=== PATIENT | female | born 2000 | race Caucasian/White ===

== ENCOUNTER 2020-05-02 21:12 | Emergency (ER) | payer OTHER, SELFPAY ==
--- NOTE | ~2020-05-02 | XR_ITS ---
EXAMINATION: XR ankle RT 2V INDICATION: Right ankle pain TECHNIQUE: Two views of the right ankle are obtained COMPARISON: 12/23/2014 FINDINGS: There is anterolateral soft tissue swelling of ankle. Bone alignment is normal. There is no fracture. IMPRESSION: 1. Soft tissue swelling without acute osseous abnormality. Reviewed, dictated and finalized at location A.
[2020-05-02 21:36] VITALS: BP 118/70; PULSE 78; RESP 20; TEMP 37.6; O2SAT 100
[2020-05-02] MEDS: ACETAMINOPHEN 500 MG TABLET 1000 MG PO (21:59)
--- NOTE | 2020-05-02 22:21 | ED.LOWEXIN ---
HPI - Extremity Injury (Lower) General Chief Complaint: Extremity Injury, Lower Stated Complaint: foot pain Source: patient Mode of arrival: ambulatory Limitations: no limitations History of Present Illness HPI Narrative: this is 20-year-old female presents with some right ankle pain with swelling after she misstepped and cause inversion of her right ankle with swelling in the lateral malleolus with some decreased range of motion secondary to pain and inflammation. complaint: ankle injury Injury: Right: ankle ( Swollen with tenderness) Type of Injury: inversion Place: work Severity: moderate Severity scale (1-10): 6 Relieving factors: immobilization Exacerbating factors: movement Context: fall Associated symptoms: swelling Related Data Home Medications Medication Instructions Recorded Confirmed No Home Medications 07/25/19 05/02/20 Allergies Allergy/AdvReac Type Severity Reaction Status Date / Time Sulfa (Sulfonamide Allergy Unknown Unknown Verified 05/02/20 21:42 Antibiotics) Review of Systems Review of Systems: All systems reviewed & are unremarkable except as noted in HPI and below PMFSH Past Medical History Medical History Syncope and collapse Family History Family History Grandparent Hypertension Family history of chronic obstructive pulmonary disease Social History Social History Smoking status: Never smoker Gender identity (if verbalized by the patient): Female Exam Const: General: no acute distress HENMT: Head: normal to inspection Eyes: Conjunctivae: conjunctivae normal Pupils: Equal, round and reactive pupils present EOM: EOMs intact bilaterally Neck: Neck: normal visual inspection, no lymphadenopathy and no meningeal signs Chest: Chest palpation & inspection: normal inspection of the chest Resp: Effort & Inspection: normal respiratory effort Auscultation: clear to auscultation bilaterally Cardio: Rate: regular rate Rhythm: regular rhythm : General: Yes no CVA tenderness Skin: General skin exam: normal color Rashes: no rashes Extrem: Other: Swelling the right lateral malleolus with point tenderness with a strong brisk pedal pulse on the right Course Course Emergency Course: patient received p.o. Tylenol and had remainder of pain down to a about 4/ 10, placed in Geo wraps informed patient and her mother x-ray show no acute fractures. Vital Signs Vital signs: Vital Signs Temperature 37.6 C 05/02/20 21:36 Pulse Rate 78 05/02/20 21:36 Respiratory Rate 05/02/20 21:36 Blood Pressure 118/70 05/02/20 21:36 Pulse Oximetry 100 05/02/20 21:36 Temperature 37.6 C 05/02/20 21:36 Pulse Rate 78 05/02/20 21:36 Respiratory Rate 05/02/20 21:36 Blood Pressure 118/70 05/02/20 21:36 Pulse Oximetry 100 05/02/20 21:36 Critical Care Time Critical Care Time Critical Care Time: No Discharge Plan Discharge Clinical Impression: Ankle sprain and strain Patient Disposition: Home, Self-Care Condition: Stable Instructions: Antibiotic Form, Ankle Sprain (ED) Additional Instructions: Tylenol or Motrin as needed for pain and swelling, follow-up with primary care physician if symptoms persist or worsen. Prescriptions: No Action No Home Medications RF: 0 Follow-up/Referrals: Tadeo Glass MD [Primary Care Provider] - Time of Disposition: 22:25
[2020-05-02 22:39] VITALS: BP 122/73
== END 2020-05-02 22:41 | disposition home or self-care (01) ==
PROVIDERS: Emergency Provider Emergency Medicine; PCP Family Medicine
DX: S93.401A Sprain of unspecified ligament of right ankle, initial encounter (principal); X58.XXXA Exposure to other specified factors, initial encounter
CPT/HCPCS: 73600; 99282; 99283

== ENCOUNTER 2020-05-14 16:09 | Outpatient (RCR) | payer OTHER, SELFPAY ==
--- NOTE | 2020-05-14 17:13 | PTOPEVAL ---
Thank you for referring Melinda Villa to [facility].? The patient is scheduled to be seen for therapy? ____x/week for ___ weeks. Please review, sign, date and return this plan of care JANIS. I agree with and certify that the following plan of care is medically necessary. Referring Physician Date Admitting Provider: Attending Provider: Tadeo Glass MD Referring Provider: *PT Outpatient Evaluation Start: 05/14/20 16:07 Freq: Status: Active Protocol: Document 05/14/20 16:15 [facility] [email or web address]] (Rec: 05/14/20 16:53 [facility] [email or web address]] [email or web address]) Therapy Assessment Status Assessment Status Assessment Status Evaluation Evaluation Information Problem Diagnosis R ankle sprain Onset 05/02/20 Subjective Information patient reports she injured Query Text:As Reported By Patient/ her R ankle when she fell down Family some steps at work. she reports she was carrying a bucket of ice. she reports she has had x-rays of the R ankle . no broken bones. she reports she has not had an MRI of the R ankle. she reports she is off work currently. she reports she is planning to go back to work in a few weeks. she reports she has increased pain in the R ankle with walking and standing. 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 she reports she also does carry out. she reports she has to about 5 gallons of ice at the heaviest at work. Prior Level of Function Comments Additional Prior Level of Function prior to injury, no issues. Comments she reports a history of 2 ankle sprains in the past growing up. Pain Assessment Timing of Pain Assessment Timing of Pain Assessment Assessment Pain Scale Pain Scale Used Numeric (1 - 10) Self Report Pain Assessment Right Ankle(s) Reported Pain Level 2 Pain Frequency Acute,Continuous Lowest Pain Intensity 1 Greatest Pain Intensity 6 Pain Score Pain Score 2: Self Report Lower Extremity Range of Motion Ankle/Foot Range of Motion Right Ankle Dorsiflextion With Knee Extension -5 Range of Motion - Active Ankle Plantarflexion Range of Motion - 45 Active Query Text:
== END 2020-06-12 15:35 | disposition home or self-care (01) ==
LOC: CHSPT 16:09
PROVIDERS: PCP Family Medicine; Visit Provider Family Medicine
DX: M25.571 Pain in right ankle and joints of right foot (principal); S93.401A Sprain of unspecified ligament of right ankle, initial encounter
CPT/HCPCS: 97016; 97110; 97112; 97161; 97530

== ENCOUNTER 2020-10-25 08:19 | Emergency (ER) | payer BC, SELFPAY ==
[2020-10-25 08:25] VITALS: BP 110/71; PULSE 81; RESP 18; TEMP 37.1; O2SAT 99
--- NOTE | 2020-10-25 08:56 | ED.ALLEREA ---
HPI - Allergic Reaction General Chief complaint: Skin/Abscess/Foreign Body Stated complaint: HIVES Source: patient, family and RN notes reviewed Mode of arrival: ambulatory Limitations: no limitations History of Present Illness complaint: allergic reaction, hives and facial swelling Onset (ago): hour(s) (16) Exposure: unknown Symptoms: rash, itching and lip swelling Severity: moderate Treatment prior to arrival: none Previous Allergic Reaction History: other (Yes to rabbit dander) Related Data Home Medications Medication Instructions Recorded Confirmed escitalopram oxalate 10 mg PO DAILY 10/25/20 10/25/20 Allergies Allergy/AdvReac Type Severity Reaction Status Date / Time Sulfa (Sulfonamide Allergy Unknown Unknown Verified 07/09/20 17:07 Antibiotics) Review of Systems Review of Systems: All systems reviewed & are unremarkable except as noted in HPI and below PMFSH Past Medical History Medical History (Updated 10/25/20 @ 09:02 by Frankie Jones MD) Depression Syncope and collapse Surgical History Surgical History (Updated 10/25/20 @ 08:59 by Frankie Jones MD) No pertinent past surgical history Family History Family History Grandparent Hypertension Family history of chronic obstructive pulmonary disease Social History Social History Smoking status: Never smoker Gender identity (if verbalized by the patient): Female Exam Const: General: healthy appearing and no acute distress Nutritional Appearance: well nourished Orientation/consciousness: patient oriented x3 Other: female nurse in room during examination. HENMT: Head: normal to inspection Ears: external ears normal Eyes: Conjunctivae: conjunctivae normal Pupils: Equal, round and reactive pupils present Neck: Neck: normal visual inspection Resp: Effort & Inspection: normal respiratory effort Auscultation: clear to auscultation bilaterally Cardio: Rate: regular rate Rhythm: regular rhythm GI: GI Palp: Yes Soft to palpation and No Tenderness to palpation present (GI) Auscultation: normal bowel sounds Back/Spine/Pelvis: Cervical Spine: cervical ROM normal Thoracic/Lumbar Spine: thoraco-lumbar ROM normal Skin: Rashes: rashes noted urticaria right multiple locations Neuro: General: patient oriented x3, moves all extremities, no meningeal signs and no focal motor deficits Speech: normal speech Gait exam (Neuro): Normal gait present Extrem: General: normal to inspection and no clubbing, cyanosis or edema Psych: Appearance: grossly normal and well kempt Affect: normal affect Attitude: cooperative Thought content: Yes Normal thought content present Course Vital Signs Vital signs: Vital Signs Temperature 37.1 C 10/25/20 08:25 Pulse Rate 81 10/25/20 08:25 Respiratory Rate 18 10/25/20 08:25 Blood Pressure 110/71 10/25/20 08:25 Pulse Oximetry 99 10/25/20 08:25 Temperature 37.1 C 10/25/20 08:25 Pulse Rate 81 10/25/20 08:25 Respiratory Rate 18 10/25/20 08:25 Blood Pressure 110/71 10/25/20 08:25 Pulse Oximetry 99 10/25/20 08:25 Discharge Plan Discharge Clinical Impression: Allergy Qualifiers: Encounter type: initial encounter Qualified Code(s): T78.40XA - Allergy, unspecified, initial encounter Patient Disposition: Home, Self-Care Condition: Stable Instructions: Allergies (ED) Additional Instructions: use or Zyrtec or Karen or Claritin [id number]. Take twice daily while having allergy symptoms. Prescriptions: No Action escitalopram oxalate 10 mg tablet 10 mg PO DAILY RF: 0 Follow-up/Referrals: Tadeo Glass MD [Primary Care Provider] - Time of Disposition: 09:02
== END 2020-10-25 09:05 | disposition home or self-care (01) ==
PROVIDERS: Emergency Provider Emergency Medicine; PCP Family Medicine
DX: T78.40XA Allergy, unspecified, initial encounter (principal); F32.9 Major depressive disorder, single episode, unspecified
CPT/HCPCS: 99281; 99282

== ENCOUNTER 2022-08-08 14:32 | Emergency (ER) | payer BC, SELFPAY ==
[2022-08-08 16:31] VITALS: BP 117/79; PULSE 112; RESP 16; TEMP 38.2; O2SAT 100
--- NOTE | 2022-08-08 16:47 | ED.URI ---
HPI - URI/Sore Throat General Chief Complaint: Upper Respiratory Infection Stated Complaint: sore throat,tonsils swollen Time Seen by Provider: 08/08/22 16:47 History of Present Illness HPI Narrative: 22-year-old female presents for complaint of sore throat, swollen tonsils, and fever since yesterday. She endorses sick contacts. She denies shortness of breath, wheezing, nausea, vomiting, diarrhea. She has not taking anything for symptoms. Related Data Home Medications Medication Instructions Recorded Confirmed escitalopram oxalate 10 mg tablet 10 mg PO DAILY 10/25/20 10/25/20 Allergies Allergy/AdvReac Type Severity Reaction Status Date / Time Sulfa (Sulfonamide Allergy Unknown Unknown Verified 07/09/20 17:07 Antibiotics) Review of Systems Review of Systems: CONSTITUTIONAL: Denies body aches EYES: Denies visual changes, redness, or discharge. ENT: Denies rhinorrhea, congestion CARDIOVASCULAR: Denies chest pain, palpitations, or edema. RESPIRATORY: Denies dyspnea. GASTROINTESTINAL: Denies abdominal pain, nausea, vomiting, or diarrhea. SKIN: Denies rash, itching, or wounds. MUSCULOSKELETAL: Denies back pain, joint pain, or myalgia. NEUROLOGIC: Denies headache PMFSH Past Medical History Medical History Depression Syncope and collapse Surgical History Surgical History No pertinent past surgical history Family History Family History Grandparent Hypertension Family history of chronic obstructive pulmonary disease Social History Social History Smoking status: Never smoker Gender identity (if verbalized by the patient): Female Exam Narrative: GENERAL: Ill-appearing, no acute distress. EYES: conjunctivae clear ENT: Mucous membranes moist. TMs pearly slaughter with normal light reflex bilaterally; no tragal tenderness. Oropharynx erythematous Tonsils enlarged 2+ with exudate. No drooling, no hoarseness, no trismus, uvula midline. No tripod positioning, hot potato voice, or soft palate swelling. CHEST: Clear to auscultation, breath sounds equal. HEART: Regular rate and rhythm. No murmur heard. SKIN: Warm, dry, no rash. NEURO: Alert and oriented x3. Course Course Emergency Course: Patient is aware of diagnosis, understands and agrees to treatment plan. Anticipatory guidance given. Patient agrees to follow-up as directed and is aware of reasons to seek care at the emergency department. Portions of this record may have been created with voice recognition software Level of Care: Express Care Visit Vital Signs Vital signs: Vital Signs Temperature 100.8 F H 08/08/22 16:31 Pulse Rate 112 H 08/08/22 16:31 Respiratory Rate 16 08/08/22 16:31 Blood Pressure 117/79 08/08/22 16:31 Pulse Oximetry 100 08/08/22 16:31 Temperature 100.8 F H 08/08/22 16:31 Pulse Rate 112 H 08/08/22 16:31 Respiratory Rate 16 08/08/22 16:31 Blood Pressure 117/79 08/08/22 16:31 Pulse Oximetry 100 08/08/22 16:31 MDM - URI/Sore Throat MDM Narrative Medical decision making narrative: strep result reviewed with pt.Advise supportive treatments. Patient is appropriate for outpatient treatment and follow-up. Differential Diagnosis Differential diagnosis: Likely upper respiratory infection, viral infection and pharyngitis Lab Data Labs: Strep Screen Positive Group A Strep *(Reference Range: Negative)* Discharge Plan Discharge Clinical Impression: Strep pharyngitis Patient Disposition: Home, Self-Care Condition: Stable Instructions: Antibiotic Form, Strep Throat (ED) Additional Instructions: - Take the antibiotic as directed. Fever and sore throat typically resolve within one to three d
== END 2022-08-08 16:54 | disposition home or self-care (01) ==
PROVIDERS: Emergency Provider Nurse Practitioner Family; PCP Family Medicine
DX: J02.0 Streptococcal pharyngitis (principal); F32.A Depression, unspecified
CPT/HCPCS: 87880; 99213; G0463

== ENCOUNTER 2022-09-02 16:03 | Outpatient (CLI) | payer BC, SELFPAY ==
--- NOTE | ~2022-09-02 | XR_ITS ---
EXAM: XR lumbar spine 2-3V DATE: 09/02/2022 16:31 HISTORY: RT SIDED LOW BACK PAIN RADIATES DOWN RT LEG X FEW MONTHS . COMPARISON: None available. FINDINGS: 5 nonrib-bearing lumbar-type vertebral bodies. Pedicles intact. Normal vertebral body alig nment. Vertebral body heights preserved. Disc spaces maintained. Normal facets and posterior elements . No fracture or dislocation. IMPRESSION: Normal lumbar spine radiograph findings. Reviewed, dictated and finalized at location K. 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
[2022-09-02 16:23] LABS: Basophils Absolute Auto 0.05 K/mm3 (0.00-0.10); Basophils Percent Auto 0.6 % (0.0-1.0); Eosinophils Absolute Auto 0.18 K/mm3 (0.02-0.50); Hematocrit 39.6 % (35.0-49.0); Hemoglobin 13.3 g/dL (12.0-15.0); Immature Granulocyte Absolute 0.03 K/mm3 (0.00-0.00); Immature Granulocyte Percent A 0.3 % (0.0-0.0); Lymphocytes Absolute Auto 3.18 K/mm3 (1.10-4.50); Lymphocytes Percent Auto 35.7 % (18.0-42.0); Mean Corpuscular HGB Conc 33.6 g/dL (32.0-36.0); Mean Corpuscular Volume 89.2 fL (78.0-102.0); Mean Platelet Volume 9.7 fl (9.2-11.8); Monocytes Absolute Auto 0.55 K/mm3 (0.10-0.90); Monocytes Percent Auto 6.2 % (2.0-11.0); Neutrophils Absolute Auto 4.9 K/mm3 (1.7-7.2); Neutrophils Percent Auto 55.2 % (50.0-70.0); Platelet Count Result 209 K/mm3 (150-420); Red Blood Count 4.44 M/mm3 (4.20-5.40); Red Cell Distribution Width 12.6 % (11.6-14.4); White Blood Count 8.9 K/mm3 (4.8-10.8)
[2022-09-02 17:20] LABS: Thyroid Stimulating Hormone 2.32 uIU/mL (0.36-3.74); Vitamin B12 484 pg/mL (193-986)
[2022-09-02 17:30] LABS: Erythrocyte Sedimentation Rate 4 mm/hr (0-15)
[2022-09-04 17:10] LABS: RPR Screen Non-Reactive (Non-Reactive)
== END 2022-09-02 16:04 | disposition home or self-care (01) ==
LOC: CHSLAB 16:06
PROVIDERS: PCP Family Medicine; Visit Provider Family Medicine
DX: M54.50 Low back pain, unspecified (principal); R20.2 Paresthesia of skin
CPT/HCPCS: 36415; 72100; 82607; 84443; 85025; 85652; 86592

== ENCOUNTER 2022-09-11 14:54 | Outpatient (RCR) | payer BC, SELFPAY ==
--- NOTE | 2022-09-11 16:04 | PTOPEVAL1 ---
Assessment and note entered by Katya Acosta DPT Evaluation Information Assessment Status Evaluation Diagnosis low back pain with radiating pain to R LE Onset 09/07/22 Subjective Information Patient reports low back pain that radiates to R LE. She reports no injury but pain gradually increased since the middle of July. Patient has diffiuclty with standing for prolonged periods of time and her back pain increases when she sits . She is on a steriod dose pack but she has not noticed an increase in pain. She works at [employer] and is on her feet all day. She denies anything to improve her pain. Reported Pain Level Pain Score 4: Self Report Assessment PT Clinical Summary Patient is a 22 year old female who presents to PT with low back pain with radiating symptoms to the R LE. Patient demonstrates decreased hip and core strength, decreased B hamstring flexibility and restriction of the R piriformis impairing her ability to stand for work duties. She would benefit from skilled PT to address impairments and return to PLOF. Plan of Care Interventions Electrical Stimulation,Gait Training,Hot Pack/Cold Pack,Manual Therapy,Mechanical Traction,Neuro Re- education,Patient/Caregiver Educati,Therapeutic Activities,Therapeutic Exercise,Self-Care/Home Management PT Services Indicated Yes Treatment Frequency and 2x weekly for 10 visits Duration These treatments will address the objective and functional deficits as defined above. The patient will be advanced safely and appropriately in order for the patient to progress towards his/her prior level of function. Additional exercises will be introduced and as well as a comprehensive home exercise program upon discharge, if needed, ?to ensure carryover of functional gains achieved in the clinic. This treatment plan has been reviewed and agreement upon by the patient.
--- NOTE | 2022-10-19 07:39 | PTOPDC ---
Assessment and note entered by Katya Acosta, DPT Evaluation Information Assessment Status Discharge - Pt Not Presen Diagnosis low back pain with radiating pain to R LE Onset 09/07/22 Subjective Information Patient reports low back pain that radiates to R LE. She reports no injury but pain gradually increased since the middle of July. Patient has diffiuclty with standing for prolonged periods of time and her back pain increases when she sits . She is on a steriod dose pack but she has not noticed an increase in pain. She works at [employer] and is on her feet all day. She denies anything to improve her pain. Assessment PT Clinical Summary Patient is a 22 year old female who was seen for 8 visits from 09/11/22-10/09/22. Patient made great improvements in pain levels and has reports that she feels great . Patient was indiependent with HEP and wishes to be discharged at this time due to positive progress. Plan of Care PT Services Indicated No
--- NOTE | 2022-10-19 07:42 | PTOPEVAL1 ---
Assessment and note entered by Katya Acosta DPT Evaluation Information Assessment Status Discharge - Pt Not Presen Diagnosis low back pain with radiating pain to R LE Onset 09/07/22 Subjective Information Patient cancelled last visit with request for DC due to feeling better. Assessment PT Clinical Summary Patient is a 22 year old female who was seen for 8 visits from 09/11/22-10/09/22. Patient made great improvements in pain levels and has reports that she feels great . Patient was independent with HEP and wishes to be discharged at this time due to positive progress. Plan of Care PT Services Indicated No Treatment Frequency and DC to independent HEP Duration These treatments will address the objective and functional deficits as defined above. The patient will be advanced safely and appropriately in order for the patient to progress towards his/her prior level of function. Additional exercises will be introduced and as well as a comprehensive home exercise program upon discharge, if needed, ?to ensure carryover of functional gains achieved in the clinic. This treatment plan has been reviewed and agreement upon by the patient.
== END 2022-10-09 11:23 | disposition home or self-care (01) ==
LOC: CHSPT 14:54
PROVIDERS: PCP Family Medicine; Visit Provider Family Medicine
DX: M54.50 Low back pain, unspecified (principal)
CPT/HCPCS: 97014; 97110; 97161; 97530; G0283

== ENCOUNTER 2023-01-27 16:17 | Outpatient (CLI) | payer BC, SELFPAY ==
[2023-01-27 16:32] LABS: Basophils Absolute Auto 0.04 K/mm3 (0.00-0.10); Basophils Percent Auto 0.3 % (0.0-1.0); Eosinophils Absolute Auto 0.08 K/mm3 (0.02-0.50); Eosinophils Percent Auto 0.6 % (1.0-6.0); Hematocrit 41.2 % (35.0-49.0); Hemoglobin 13.6 g/dL (12.0-15.0); Immature Granulocyte Absolute 0.09 K/mm3 (0.00-0.00); Immature Granulocyte Percent A 0.7 % (0.0-0.0); Lymphocytes Absolute Auto 1.46 K/mm3 (1.10-4.50); Lymphocytes Percent Auto 11.1 % (18.0-42.0); Mean Corpuscular Hemoglobin 29.8 pg (27.0-31.0); Mean Corpuscular Volume 90.2 fL (78.0-102.0); Mean Platelet Volume 9.7 fl (9.2-11.8); Monocytes Absolute Auto 1.16 K/mm3 (0.10-0.90); Monocytes Percent Auto 8.8 % (2.0-11.0); Neutrophils Absolute Auto 10.4 K/mm3 (1.7-7.2); Neutrophils Percent Auto 78.5 % (50.0-70.0); Platelet Count Result 177 K/mm3 (150-420); Red Blood Count 4.57 M/mm3 (4.20-5.40); Red Cell Distribution Width 12.6 % (11.6-14.4); White Blood Count 13.2 K/mm3 (4.8-10.8)
[2023-01-27 16:37] LABS: Monoscreen Negative (Negative); Negative Monotest Control Negative (Negative); Positive Monotest Control Positive (Positive)
== END 2023-01-27 16:18 | disposition home or self-care (01) ==
LOC: CHSLAB 16:19
PROVIDERS: PCP Family Medicine; Visit Provider Family Medicine
DX: J06.9 Acute upper respiratory infection, unspecified (principal)
CPT/HCPCS: 36415; 85025; 86308

== ENCOUNTER 2023-04-26 01:01 | Day surgery (SDC) | payer BC, SELFPAY ==
--- NOTE | 2023-04-20 14:17 | PC.NURSE ---
Report to the Outpatient Waiting Room, entrance under the green pavilion located off [facility], at time 1130 on date 04/26/23. Planned Procedure Time: 1330. Time changes happen often and if your time is changed the preop area will call you the afternoon before. - You and your visitor will be asked to self-screen and do not enter if you have any COVID symptoms. - A mask is optional within the hospital at this time. Patients may have clear liquids (water, carbonated beverages, clear teas, apple juice) until 3 hours prior to surgery with a maximum of 20 ounces. 1030 - No food from midnight until time of surgery - Infants may have breast milk until 4 hours before surgery, formula 6 hours prior to surgery. - Children will be allowed to drink immediately following surgery. If applicable, please bring a bottle or sippy cup to assist with drinking. Juice, water, soda, and popsicles are readily available. For infants on formula, please bring formula the day of surgery. Pacifiers are allowed. Take the following medications with a SIP of water the morning of surgery: None DO NOT STOP ANY OF YOUR OTHER PRESCRIPTION MEDICATIONS PRIOR TO SURGERY ?EXCEPT THE FOLLOWING Medications to discontinue per physician Zyrte Date to take last dose 04/25/23 Please no make-up, nail kyrgyz, hairspray, perfume, deodorant, or body powder the day of surgery. No jewelry (including any body piercings) or valuables the day of surgery, leave them at home. Please take a shower or bath the night before, or the morning of, surgery with an antibacterial soap. Wear comfortable, loose fitting clothing. Children are encouraged to wear pajamas. - Jewelry must be removed prior to entering the operating room. Rings and piercings that are not removed may be cut off. - The hospital will not accept responsibility for valuables. - Please leave all valuables, including medications, at home the day of surgery. If you are going home after surgery, a licensed water taxi driver must drive you home. - NO public transportation without another adult if you receive anesthesia. - We recommend that an adult stay with you for 24 hours following discharge. - We also recommend that you do not drive, make important decision, drink alcoholic beverages, or take any drugs that were not prescribed by your health care provider for at least 24 hours after your discharge time. For Pediatric surgeries, we recommend two adults accompany the child home. Follow any additional instructions given to you from your surgeon. If you or anyone in your household have experienced Covid symptoms in the past week, please notify your surgeon or the nurse liaison at the phone number below for possible testing. Telephone instructions given to Patient- Melinda Villa and asked if any additional questions and then verbalized understanding. Patient advised to call surgeon office or pre surgery nurse liaison [phone] if any additional questions.
[2023-04-20 14:22] VITALS: BMI 21.2
--- NOTE | 2023-04-26 11:17 | WPDHPUPDATE1 ---
History and Physical Update Update Date/Time: 04/26/23 11:17 History and Physical has been reviewed, including an updated exam of the patient. There are NO changes in the patient's condition. Risks, benefits, and alternatives have been discussed and questions answered. Patient agrees to proceed with procedure.
--- NOTE | 2023-04-26 11:17 | PM.HPGS ---
History of Present Illness History of Present Illness Consent: Risks, benefits, and alternatives have been discussed and questions answered. Patient agrees to proceed with procedure. Chief complaint: Partial Intact Hymen Narrative: Melinda Villa is a 23 year old female who presented as a new patient with the inability to place a tampon or have intercourse. Patient has cycles that are regular. She bought vaginal dilators online and has been attempting to place them but is not able. Exam reveals 2 small openings that a Q-tip was able to pass approximately 1cm in depth. Exam was very painful. It was recommended to undergo vaginal dilation in the operating room. Risks the procedure were reviewed and minimal the small chance of bleeding and infection. Patient voices understanding and agrees to proceed. Review of Systems Review of Systems: not repeated day of surgery; patient states no changes in status PMF Past Medical History Medical History (Updated 04/26/23 @ 11:21 by Hedy Pepper MD) Anxiety Depression Surgical History Surgical History (Updated 04/26/23 @ 11:20 by Hedy Pepper MD) History of myringotomy No pertinent past surgical history Family History Family History Grandparent Hypertension Family history of chronic obstructive pulmonary disease Social History Social History Smoking status: Never smoker Tobacco type: e-cigarettes/vaping Drinks per week: 6 Substance use: current Substance use type: marijuana Other substance usage details: rarely Gender identity (if verbalized by the patient): Female Spiritual care concerns: No Meds Home Medications and Allergies Home Medications Medication Instructions Recorded Confirmed Type cetirizine 10 mg tablet (Zyrtec) 10 mg PO DAILY 04/20/23 04/20/23 History Allergies Allergy/AdvReac Type Severity Reaction Status Date / Time Sulfa (Sulfonamide Allergy Unknown Hives Verified 04/20/23 14:06 Antibiotics) Exam Const: General: healthy appearing and alert Orientation/consciousness: patient oriented x3 Resp: Effort & Inspection: normal respiratory effort GI: GI Palp: Yes Soft to palpation, No Tenderness to palpation present (GI) and No Palpable mass present : External Female Exam: other (2 small openings at the hymen ) Neuro: General: patient oriented x3 Assessment and Plan Assessment and plan (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
[2023-04-26] MEDS: ACETAMINOPHEN 500 MG TABLET 1000 MG PO (14:05)
[2023-04-26] MEDS: LACTATED RINGERS 1,000 ML 30 ML IV CONT (14:05)
[2023-04-26 14:35] VITALS: BP 121/75; PULSE 106; RESP 16; TEMP 36.4; O2SAT 99
--- NOTE | 2023-04-26 15:17 | P.PNAN_ITS ---
Anes - Eval Pre Procedure Procedure: Operation Date: 04/26/23 15:00 Proposed Procedures p Vaginal Dilation - Hedy Pepper MD Date/Time: 04/26/23 15:17 Pre Op Diagnosis: Partial Intact Hymen Patient Data Age: 23 Gender: F Height: 1.6 m Weight: 53.3 kg Last Vital Signs Temp 36.4 C L 04/26/23 14:35 Pulse 106 H 04/26/23 14:35 Resp 16 04/26/23 14:35 BP 121/75 04/26/23 14:35 Pulse Ox 99 04/26/23 14:35 O2 Del Method Room Air 04/26/23 14:35 Allergies Allergy/AdvReac Type Severity Reaction Status Date / Time Sulfa (Sulfonamide Allergy Unknown Hives Verified 04/26/23 14:40 Antibiotics) Home Medications Medication Instructions Recorded Confirmed Type cetirizine 10 mg tablet (Zyrtec) 10 mg PO DAILY 04/20/23 04/20/23 History Patient hx anesthesia problems: none Family hx anesthesia problems: none Results Review: All pre-operative results and documents have been reviewed as part of the pre- operative evaluation. [facility] Past Medical History Medical History (Updated 04/26/23 @ 11:21 by Hedy Pepper MD) Anxiety Depression Surgical History Surgical History (Updated 04/26/23 @ 11:20 by Hedy Pepper MD) History of myringotomy No pertinent past surgical history Family History Family History Grandparent Hypertension Family history of chronic obstructive pulmonary disease Social History Social History Smoking status: Never smoker Tobacco type: e-cigarettes/vaping Drinks per week: 6 Substance use: current Substance use type: marijuana Other substance usage details: rarely Gender identity (if verbalized by the patient): Female Spiritual care concerns: No Exam Day of Procedure 04/26/23 15:17 Patient weight: normal Heart: regular rate and rhythm Lungs: clear to auscultation Airway: Mallampati scale class II Neurological: alert and oriented
[2023-04-26] MEDS: KETOROLAC 30 MG/ML VIAL (*BKC) IV PUSH (15:27)
--- NOTE | 2023-04-26 15:38 | W.PM.PROC2 ---
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 Once under anesthesia the anatomy was much easier to evaluate. There is a wide septum in the hymen with a very small opening approximately 1/4cm to the left and approximately 1/2cm to the right. The septum is cut with Dukes scissors in the midline the vaginal canal is noted to be normal and accepts a 15mm dilator easily. A Ragsdale speculum is utilized and the vagina and cervix appear grossly normal vaginal exam reveals the cervix to palpate normal and the uterus palpates normal. As no other abnormalities were noted, the patient was awakened from anesthesia and taken to recovery in stable condition. Sponge, needle, and instrument counts are correct per the OR staff. Estimated Blood Loss 5 Drains No Packing No Pathology None sent Complications No immediate complications Condition Stable Disposition PACU
[2023-04-26 15:39] VITALS: BP 87/53; PULSE 88; RESP 12; O2SAT 98
[2023-04-26 16:01] VITALS: BP 103/65; PULSE 63; RESP 16
[2023-04-26 16:30] VITALS: BP 107/77; PULSE 81; RESP 16
== END 2023-04-26 16:35 | disposition home or self-care (01) ==
PROVIDERS: PCP Family Medicine; Visit Provider Obstetrics & Gynecology Gynecology
PROC: (CPT 56442; principal; 2023-04-26 15:00)
DX: Q52.4 Other congenital malformations of vagina (principal); F41.9 Anxiety disorder, unspecified; F32.A Depression, unspecified; F17.290 Nicotine dependence, other tobacco product, uncomplicated; F12.90 Cannabis use, unspecified, uncomplicated
CPT/HCPCS: 56442; 57400; A9270; J1100; J1885; J2250; J2405; J2704; J3010; J7120

== ENCOUNTER 2023-06-15 15:52 | Outpatient (CLI) | payer BC, SELFPAY ==
[2023-06-15 16:06] LABS: Basophils Absolute Auto 0.03 K/mm3 (0.00-0.10); Basophils Percent Auto 0.5 % (0.0-1.0); Eosinophils Absolute Auto 0.09 K/mm3 (0.02-0.50); Eosinophils Percent Auto 1.5 % (1.0-6.0); Hematocrit 40.3 % (35.0-49.0); Hemoglobin 13.5 g/dL (12.0-15.0); Immature Granulocyte Absolute 0.03 K/mm3 (0.00-0.00); Immature Granulocyte Percent A 0.5 % (0.0-0.0); Lymphocytes Absolute Auto 2.05 K/mm3 (1.10-4.50); Lymphocytes Percent Auto 34.2 % (18.0-42.0); Mean Corpuscular HGB Conc 33.5 g/dL (32.0-36.0); Mean Corpuscular Hemoglobin 29.4 pg (27.0-31.0); Mean Corpuscular Volume 87.8 fL (78.0-102.0); Mean Platelet Volume 9.5 fl (9.2-11.8); Monocytes Percent Auto 6.7 % (2.0-11.0); Neutrophils Absolute Auto 3.4 K/mm3 (1.7-7.2); Neutrophils Percent Auto 56.6 % (50.0-70.0); Platelet Count Result 227 K/mm3 (150-420); Red Blood Count 4.59 M/mm3 (4.20-5.40); Red Cell Distribution Width 11.9 % (11.6-14.4)
[2023-06-15 16:47] LABS: Alanine Aminotransferase 22 U/L (14-59); Albumin Level 3.8 g/dL (3.4-5.0); Alkaline Phosphatase 70 U/L (46-116); Amylase 45 U/L (25-115); Anion Gap 8 mmol/L (8-16); Aspartate Amino Transferase 14 U/L (15-37); Bilirubin,Total 0.2 mg/dL (0.00-1.00); Blood Urea Nitrogen 7 mg/dL (7-18); Calcium 9.5 mg/dL (8.5-10.1); Carbon Dioxide 29 mmol/L (21-32); Chloride 103 mmol/L (98-108); Estimated Glomerular Filt Rate > 60; Free T4 Free Thyroxine 1.01 ng/dL (0.76-1.46); Glucose 106 mg/dL (70-99); Lipase 43 U/L (16-77); Osmolality Calculated 288 mOsm/kg (285-295); Potassium 3.8 mmol/L (3.5-5.1); Sodium 140 mmol/L (136-145); Thyroid Stimulating Hormone 2.46 uIU/mL (0.36-3.74); Total Protein 6.9 g/dL (6.4-8.2)
[2023-06-15 16:48] LABS: CRP < 0.5 mg/dL (0.0-0.9)
[2023-06-19 12:36] LABS: ANCA Screen Negative (Negative); Myeloperoxidase Ab <1.0 AI (<1.0); Proteinase-3 Ab <1.0 AI (<1.0); S cerevisiae Ab (IgA) 5.7 U (<=20.0); S cerevisiae Ab (IgG) 12.5 U (<=20.0)
== END 2023-06-15 15:53 | disposition home or self-care (01) ==
LOC: CHSLAB 15:54
PROVIDERS: PCP Family Medicine; Visit Provider Nurse Practitioner Family
DX: R10.84 Generalized abdominal pain (principal); K59.00 Constipation, unspecified; K58.9 Irritable bowel syndrome, unspecified
CPT/HCPCS: 36415; 80053; 82150; 83690; 84439; 84443; 85025; 86036; 86140; 86671

== ENCOUNTER 2024-07-05 16:44 | Emergency (ER) | payer BC, SELFPAY ==
--- NOTE | 2024-07-05 16:54 | ED.FEMALEGU ---
HPI - Female Genitourinary General Chief complaint: Urogenital-Female Stated complaint: possible UTI Time Seen by Provider: 07/05/24 17:18 Source: patient and RN notes reviewed Mode of arrival: ambulatory Limitations: no limitations History of Present Illness HPI Narrative: 24-year-old female presents with concern of for burning with urination, frequency, suprapubic cramping, low back pain on the right, foul odor. She also reports white vaginal discharge in itching. Reports she used Monistat 1 today. Denies fever, aches, chills, sweats MD elicited complaint: UTI Related Data Allergies Allergy/AdvReac Type Severity Reaction Status Date / Time Sulfa (Sulfonamide Allergy Unknown Hives Verified 07/05/24 17:05 Antibiotics) Review of Systems Review of Systems: CONSTITUTIONAL: Denies malaise, chills, sweats, or fever. CARDIOVASCULAR: Denies chest pain, palpitations, or edema. RESPIRATORY: Denies cough or dyspnea. GASTROINTESTINAL: Denies abdominal pain, nausea, vomiting, diarrhea GENITOURINARY: Reports dysuria, frequency, urgency, suprapubic pressure, vaginal itching and discharge. Denies flank pain or hematuria. SKIN: Denies rash or itching. MUSCULOSKELETAL: Denies back pain or myalgia. All systems reviewed & are unremarkable except as noted in HPI and below PMFSH Past Medical History Medical History (Updated 07/05/24 @ 17:22 by Claudia Morrison NP) Anal discharge Anxiety BRBPR (bright red blood per rectum) Depression Hemorrhoids IBS (irritable bowel syndrome) Rectal itching Surgical History Surgical History History of myringotomy No pertinent past surgical history Family History Family History Grandparent Hypertension Family history of chronic obstructive pulmonary disease Social History Social History Smoking status: Never smoker Tobacco type: e-cigarettes/vaping Drinks per week: 6 Substance use: current Substance use type: marijuana Other substance usage details: rarely Gender identity (if verbalized by the patient): Female Spiritual care concerns: No Comments At time of signature, agree with nursing past medical, surgical, social and family history. There is no relevant family history pertinent to the presenting complaint Exam Narrative: GENERAL: Well-appearing, well-nourished, and in no acute distress. HEAD: Normocephalic. EYES: PERRLA, conjunctivae clear. NECK: Supple. No lymphadenopathy CHEST: Clear to auscultation. No respiratory distress. HEART: Regular rate and rhythm. ABDOMEN: Soft, nontender upon palpation, nondistended, normal active bowel sounds, no palpable or pulsatile masses, no guarding. No CVA tenderness SKIN: Warm, dry, no rash. NEURO: Alert and oriented x3. PSYCH: Normal mood and affect Course Course Emergency Course: Patient is aware of diagnosis, understands and agrees to treatment plan. Anticipatory guidance given. Patient agrees to follow-up as directed and is aware of reasons to seek care at the emergency department. Portions of this record may have been created with voice recognition software Level of Care: Express Care Visit Vital Signs Vital signs: Reviewed. MDM - Female Genitourinary MDM Narrative Medical decision making narrative: Exam findings and UA show no acute concerns or changes; patient is non-toxic appearing and is in no distress. Patient is appropriate for outpatient treatment and follow-up. Differential Diagnosis Differential diagnosis: Likely urinary tract infection and cystitis Critical Care Time Critical Care Time Critical Care Time: No Discharge Plan Discharge Clinical Impression: Urinary tract infection Patient Disposition: Home, Self-Care Condition: Stable Instructions: Antibiotic Form, Urinary Tract Infection in Women (ED) Additional Instructions: We will send a urine culture to the lab; if the culture identifies an organism that the prescribed antibiotic will not treat, you will receive a phone call from an urgent care staff member and an appropriate antibiotic will be prescribed. -Your symptoms should begin to improve within a day of starting antibiotics. But you should finish all the antibiotic pills you get. Otherwise your infection might come back. -Also recommend: increase water intake. Tylenol/ibuprofen as needed for pain or fever -Follow-up with your primary care provider for urine recheck or seek ER visit if condition worsens with high fever, nausea, vomiting and severe back pain. Prescriptions: New amoxicillin-pot clavulanate 875-125 mg tablet 1 tablet PO Q12H 10 Days Qty: 20 0RF Follow-up/Referrals: Tadeo Glass MD [Primary Care Provider] - Time of Disposition: 17:22
[2024-07-05 17:00] VITALS: BP 110/67; PULSE 100; RESP 20; TEMP 36.8; O2SAT 100
[2024-07-05 17:18] LABS: EDUAAPPEAR Clear; EDUABILI Negative (Negative); EDUABLOOD 3+ (Negative); EDUACOLOR1 Light/Pale; EDUAGLUCOSE Negative (Negative); EDUAKETONE Negative (Negative); EDUALEUKO 1+ (Negative); EDUANITRATE Negative (Negative); EDUAPROTEIN Negative (Negative); EDUASPGRAVITY 1.015; EDUAUROBILI 0.2
== END 2024-07-05 17:31 | disposition home or self-care (01) ==
PROVIDERS: Emergency Provider Nurse Practitioner; PCP Family Medicine
DX: N39.0 Urinary tract infection, site not specified (principal)
CPT/HCPCS: 81003; 87086; 99213; G0463

== ENCOUNTER 2024-07-20 17:44 | Emergency (ER) | payer BC, SELFPAY ==
[2024-07-20 17:53] VITALS: BP 107/84; PULSE 81; RESP 16; TEMP 36.5; O2SAT 100
[2024-07-20 18:13] LABS: EDUAAPPEAR Clear; EDUABILI Negative (Negative); EDUABLOOD 3+ (Negative); EDUACOLOR1 Pink; EDUAGLUCOSE Negative (Negative); EDUAKETONE Negative (Negative); EDUALEUKO 2+ (Negative); EDUANITRATE Negative (Negative); EDUAPROTEIN Negative (Negative); EDUAUROBILI 0.2
--- NOTE | 2024-07-20 18:13 | ED_ITS ---
HPI - Female Genitourinary General Chief complaint: Urogenital-Female Stated complaint: Uti Symptoms Time Seen by Provider: 07/20/24 18:13 Source: patient Mode of arrival: ambulatory Limitations: no limitations History of Present Illness HPI Narrative: 24-year-old female presents with complaint of burning with urination, blood in urine since yesterday. Afebrile. Denies nausea vomiting.. Reports burning sensation to suprapubic area. Patient reports urinary tract infection approximately 2-3 weeks ago. Took Augmentin symptoms resolved. All systems reviewed and negative except as noted above. Related Data Allergies Allergy/AdvReac Type Severity Reaction Status Date / Time Sulfa (Sulfonamide Allergy Unknown Hives Verified 07/20/24 18:26 Antibiotics) Review of Systems Review of Systems: CONSTITUTIONAL: Denies fever, chills, or sweats. EYES: Denies visual changes, redness, or discharge. ENT: Denies rhinorrhea, congestion, sore throat, or otalgia. CARDIOVASCULAR: Denies chest pain, palpitations, or edema. RESPIRATORY: Denies cough or dyspnea. GASTROINTESTINAL: Denies abdominal pain, nausea, vomiting, or diarrhea. GENITOURINARY: Reports dysuria, urgency, frequency, hematuria SKIN: Denies rash or itching. MUSCULOSKELETAL: Denies back pain, joint pain, or myalgia. NEUROLOGIC: Denies headache, numbness, or weakness. PSYCHIATRIC: Denies anxiety or depression. All other systems reviewed are negative, except as documented in HPI. [facility] Past Medical History Medical History (Updated 07/20/24 @ 18:21 by Mansi Sharma NP) IBS (irritable bowel syndrome) Hemorrhoids Anal discharge BRBPR (bright red blood per rectum) Rectal itching Anxiety Depression Surgical History Surgical History History of myringotomy No pertinent past surgical history Family History Family History Grandparent Hypertension Family history of chronic obstructive pulmonary disease Social History Social History Smoking status: Never smoker Tobacco type: e-cigarettes/vaping Drinks per week: 6 Substance use: current Substance use type: marijuana Other substance usage details: rarely Gender identity (if verbalized by the patient): Female Spiritual care concerns: No Comments At time of signature, agree with nursing past medical, surgical, social and family history. There is no relevant family history pertinent to the presenting complaint. Exam Narrative: GENERAL: This is a well-nourished, well-developed patient, in no apparent distress. HEAD: normocephalic, atraumatic. EYES: PERRL. Sclera clear/white. Vision is grossly intact. EARS: External ears normal NOSE: External nose normal NECK: Neck supple, non-tender without lymphadenopathy, masses or thyromegaly. CARDIOVASCULAR: Regular rate and rhythm without murmurs, gallops, or rubs. RESPIRATORY: Clear to auscultation. Breath sounds equal bilaterally. No wheezes, rales, or rhonchi. SKIN: warm, Dry, intact with no suspicious lesions or rash, good texture and turgor. NEURO: awake, alert, and oriented to person, place and time. There were no obvious focal neurologic abnormalities. EXTREMITIES: No joint tenderness, effusion, or edema noted. Course Course Level of Care: Express Care Visit Vital Signs Vital signs: Vital Signs Temperature 36.5 C 07/20/24 17:53 Pulse Rate 81 07/20/24 17:53 Respiratory Rate 16 07/20/24 17:53 Blood Pressure 107/84 07/20/24 17:53 Pulse Oximetry 100 07/20/24 17:53 Temperature 36.5 C 07/20/24 17:53 Pulse Rate 81 07/20/24 17:53 Respiratory Rate 16 07/20/24 17:53 Blood Pressure 107/84 07/20/24 17:53 Pulse Oximetry 100 07/20/24 17:53 Reviewed MDM - Female Genitourinary MDM Narrative Medical decision making narrative: Urinalysis positive for leukocytes, blood, nitrates. Will treat patient with cephalexin for urinary tract infection. Urine culture ordered. Patient is well-appearing, nontoxic. Patient is aware of diagnosis, understands and agrees to treatment plan. Anticipatory guidance given. Patient agrees to follow-up as directed and is aware of reasons to seek care at the emergency department. Portions of this record may have been created with voice recognition software Lab Data Labs: Lab Results 07/20/24 Range/Units 18:10 POC Urine Color [place] POC Urine Clarity Clear POC Urine pH 7.0 POC Ur Specif [place] 1.010 POC Urine Protein Negative (Negative) POC Ur Glucose (UA) Negative (Negative) POC Urine Ketones Negative (Negative) POC Urine Blood 3+ (Negative) POC Urine Nitrite Negative (Negative) POC Urine Bilirubin Negative (Negative) POC Urine Urobilinogen 0.2 POC U Leukocyte Esteras 2+ (Negative) Discharge Plan Discharge Clinical Impression: Urinary tract infection Qualifiers: Urinary tract infection type: site unspecified Hematuria presence: with hematuria Qualified Code(s): N39.0 - Urinary tract infection, site not specified Patient Disposition: Home, Self-Care Condition: Stable Instructions: Antibiotic Form, Urinary Tract Infection in Women (ED) Additional Instructions: Take antibiotic as prescribed until gone. Drink at least 64 oz water a day. A urine culture was ordered today and results will take 48-72 hours. 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 Patient Language: Somali Prescriptions: New cephalexin 500 mg capsule 500 mg PO BID 7 Days Qty: 14 0RF fluconazole 150 mg tablet 150 mg PO ONCE 1 Days Qty: 1 0RF Follow-up/Referrals: PHYSICIAN,G[employer] WEIGHTER [Primary Care Provider] - Time of Disposition: 18:22
== END 2024-07-20 18:26 | disposition home or self-care (01) ==
PROVIDERS: Emergency Provider Nurse Practitioner Family
DX: N39.0 Urinary tract infection, site not specified (principal); B96.20 Unspecified Escherichia coli [E. coli] as the cause of diseases classified elsewhere; F17.290 Nicotine dependence, other tobacco product, uncomplicated; F12.90 Cannabis use, unspecified, uncomplicated
CPT/HCPCS: 81003; 87077; 87086; 87186; 99213; G0463

== ENCOUNTER 2025-03-28 12:22 | Emergency (ER) | payer BC, SELFPAY ==
--- NOTE | 2025-03-28 12:24 | ED.FEMALEGU ---
HPI - Female Genitourinary General Chief complaint: Urogenital-Female Stated complaint: POSSIBLE YEAST INFECTION Time Seen by Provider: 03/28/25 12:23 Source: patient Mode of arrival: ambulatory Limitations: no limitations History of Present Illness HPI Narrative: Melinda is a 24 year old female patient presenting to the clinic today with c/o possible vaginal yeast infection x 1 week. She reports she recently got off Flagyl for an infection. Finished taking OTC 3 day monistat a few day ago. Monistat improved her symptoms but they came back. States discharge is white and chunky. Having vaginal itching and discomfort over the externa vaginal areas when urinating. Does not endorse UTI symptoms. Has not had menstrual period for a couple months due to taking control- stopped control and has been taking preg test with negative results. Is using condoms during intercourse now. No concern for STI- has been with the same partner for 9 mos. Partner does not endorse any symptoms. No fever, chills, bodyaches, back pain, abdomen pain, nausea, or vomiting. Related Data Home Medications ?Medication ?Instructions ?Recorded ?Confirmed ?Last Taken ?Type norethindrone 1 mg-ethinyl tablet 03/28/25 Unknown History estradiol 10 mcg (24)-iron 10 mcg(2) tablet (Lo Loestrin Fe) Allergies Allergy/AdvReac Type Severity Reaction Status Date / Time Sulfa (Sulfonamide Allergy Mild Hives Verified 03/28/25 12:23 Antibiotics) [facility] Past Medical History Medical History (Updated 03/28/25 @ 12:46 by Long Woo APRN) IBS (irritable bowel syndrome) Hemorrhoids Anal discharge BRBPR (bright red blood per rectum) Rectal itching Anxiety Depression Surgical History Surgical History History of myringotomy No pertinent past surgical history Family History Family History Grandparent Hypertension Family history of chronic obstructive pulmonary disease Social History Social History Smoking status: Never smoker Tobacco type: e-cigarettes/vaping Drinks per week: 6 Substance use: current Substance use type: marijuana Other substance usage details: rarely Gender identity (if verbalized by the patient): Female Spiritual care concerns: No Comments At the time of my signature, I reviewed and agree with the nursing past medical, surgical, social, and family history. There is no relevant family history pertinent to the patient complaint. Exam Narrative: General: Well-developed, well nourished, in no apparent distress. Head: Normocephalic, atraumatic. Cardio: Regular rate and rhythm, s1 and s2 normal, no murmur appreciated. Resp: Clear to auscultation bilaterally, no rhonchi, rales, wheezing or rubs. Abdomen: Soft, pliable, bowel sounds present in all quadrants, non-tender to palpation, no organomegly, no CVAT tenderness. : Deferred-patient declined exam- requesting to self swab Course Course Emergency Course: Portions of this record may have been created with voice recognition software. Level of Care: Express Care Visit Vital Signs Vital signs: Vital Signs Temperature 36.7 C 03/28/25 12:32 Pulse Rate 99 03/28/25 12:32 Respiratory Rate 18 03/28/25 12:32 Blood Pressure 113/81 03/28/25 12:32 Pulse Oximetry 100 03/28/25 12:32 Temperature 36.7 C 03/28/25 12:32 Pulse Rate 99 03/28/25 12:32 Respiratory Rate 18 03/28/25 12:32 Blood Pressure 113/81 03/28/25 12:32 Pulse Oximetry 100 03/28/25 12:32 Vital signs reviewed MDM - Female Genitourinary MDM Narrative Medical decision making narrative: At the time of visit patient is resting comfortably on the exam table. Patient appears to be nontoxic. C/o possible vaginal yeast infection x 1 week. She reports she recently got off Flagyl for an infection. Finished taking OTC 3 day monistat a few day ago. Monistat improved her symptoms but they came back. States discharge is white and chunky. Having vaginal itching and discomfort over the externa vaginal areas when urinating. Does not endorse UTI symptoms. Has not had menstrual period for a couple months due to taking control- stopped control and has been taking preg test with negative results. Is using condoms during intercourse now. No concern for STI- has been with the same partner for 9 mos. Partner does not endorse any symptoms. No fever, chills, bodyaches, back pain, abdomen pain, nausea, or vomiting. Labs: Bacterial vaginosis and genital culture was sent to the lab Plan: I suspect patient has a vaginal yeast infection. Prescription for Diflucan was sent to the pharmacy. BV and genital culture was sent to the lab. Patient declines STI testing at this time and will get this done in 2 days at her PCPs office. Supportive measures were discussed with the patient and they voiced understanding discharge instructions and agrees to treatment plan. Return precautions reviewed Differential Diagnosis Differential diagnosis: Likely urinary tract infection, bacterial vaginosis, trichomoniasis, cervicitis, ovarian cyst, vaginitis, ruptured ovarian cyst, cyst of Bartholin's gland and cystitis Discharge Plan Discharge Clinical Impression: Vaginal yeast infection Patient Disposition: Home Condition: Stable Instructions: Antibiotic Form, Yeast Infection (ED) Additional Instructions: Take fluconazole as prescribed May use [id number] external Monistat cream as directed Vaginal swabs were sent to the lab testing for a genital culture and bacterial vaginosis-we will contact you with test results You declined STI testing at this time. Follow-up with your PCP/OBGYN as scheduled Patient Language: Greenlandic Prescriptions: New fluconazole 150 mg tablet 150 mg PO ONCE Qty: 2 0RF Rx Instructions: as a single dose. May repeat in 72 hours if needed. No Action cephalexin 500 mg capsule 500 mg PO BID 7 Days Qty: 14 0RF fluconazole 150 mg tablet 150 mg PO ONCE 1 Days Qty: 1 0RF Lo Loestrin Fe 1 mg-10 mcg (24)/10 mcg (2) tablet Follow-up/Referrals: Tadeo Glass MD [Primary Care Provider, Internal Medicine] Time of Disposition: 12:47 Quality NIHSS Nursing Documentation ED NIHSS nursing documentation: reviewed/agree
[2025-03-28 12:32] VITALS: BP 113/81; PULSE 99; RESP 18; TEMP 36.7; O2SAT 100
== END 2025-03-28 12:48 | disposition home or self-care (01) ==
PROVIDERS: Emergency Provider Nurse Practitioner Family; PCP Family Medicine
DX: B37.31 Acute candidiasis of vulva and vagina (principal)
CPT/HCPCS: 87070; 87798; 99213; G0463

== ENCOUNTER 2025-06-28 17:13 | Outpatient (CLI) | payer BC, SELFPAY ==
[2025-06-28 17:56] LABS: Hematocrit 43.0 % (37.0-47.0); Hemoglobin 14.7 g/dL (12.0-15.0); Mean Corpuscular HGB Conc 34.2 g/dl (32-36); Mean Corpuscular Hemoglobin 29.9 pg (26-34); Mean Corpuscular Volume 87.4 fl (80-100); Platelet Count Result 218 k/mm3 (150-375); Red Blood Count 4.92 M/mm3 (4.2-5.4); White Blood Count 7.0 K/mm3 (4.5-10.0)
[2025-06-28 18:10] LABS: Alanine Aminotransferase 22 U/L (6-35); Albumin Level 4.8 g/dL (3.5-5.1); Alkaline Phosphatase 68 U/L (38-126); Anion Gap 9 mmol/L (4-12); Aspartate Amino Transferase 29 U/L (14-36); Bilirubin,Total 0.7 mg/dL (0.2-1.3); Blood Urea Nitrogen 9 mg/dL (7-17); Calcium 9.3 mg/dL (8.4-10.2); Carbon Dioxide 24 mmol/L (22-30); Chloride 101 mmol/L (98-107); Cholesterol 193 mg/dL (0-200); Estimated Glomerular Filt Rate > 60; Glucose 76 mg/dL (65-110); HDL Direct 78 mg/dL; Potassium 3.9 mmol/L (3.4-5.0); Sodium 134 mmol/L (137-145); Total Protein 8.1 g/dL (6.3-8.2); Triglycerides 73 mg/dL (<150)
[2025-06-28 18:25] LABS: Beta HCG Quantitative < 2.39 mIU/ML
[2025-06-28 18:40] LABS: Thyroid Stimulating Hormone 2.170 uIU/mL (0.465-4.680)
[2025-06-28 18:53] LABS: Free T4 Free Thyroxine 1.22 ng/dL (0.78-2.19)
[2025-06-28 18:59] LABS: Vitamin B12 669.0 pg/mL (239-931)
[2025-06-28 20:16] LABS: Hemoglobin A1C 5.1 % (<5.7)
== END 2025-06-28 17:14 | disposition home or self-care (01) ==
LOC: ANHLAB 17:17
PROVIDERS: PCP Family Medicine
DX: Z13.0 Encounter for screening for diseases of the blood and blood-forming organs and certain disorders involving the immune mechanism (principal); N91.2 Amenorrhea, unspecified
CPT/HCPCS: 36415; 80053; 80061; 82306; 82607; 82627; 83036; 83498; 83525; 84146; 84439; 84443; 84702; 85027

== ENCOUNTER 2025-06-30 08:29 | Outpatient (CLI) | payer BC, SELFPAY ==
--- OUTSIDE RECORDS SUMMARY | 2025-06-30 08:38 | XMS_ITS | Clinical Summary ---
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 Gender Identity Not on file Sexual Orientation Not on file Plan of Treatment Health Maintenance Due Date Last Done Comments Cervical Cancer Screening Pa p Smear (Age 21 to 29) Every 3 Years 2000 Cervical Cancer Screening 2000 Annual Physical 2003 HPV Vaccines (1 - 3-dose series) 2015 Hepatitis C 2018 DTaP, Tdap and Td Vaccines ( 1 - Tdap) 2019 Hepatitis B Vaccines (1 of 3 - 19+ 3-dose series) 2019 COVID-19 Vaccine ( - 2024-2 6 season) 2025 Influenza Adult (#1) 2025 Hepatitis A Vaccines Aged Out No long er eligible based on patient's age to complete this topic Meningococcal B Vaccine Aged Out No l onger eligible based on patient's age to complete this topic Meningococcal Vaccine Aged Out No camila laura eligible based on patient's age to complete this topic Pneumococcal Vaccine: Pediat rics (0 to 5 Years) and At-Risk Patients (6 to 49 Years) Aged Out No longer eligible b ased on patient's age to complete this topic RSV Immunizations Under 20 Months Aged Out No longer eligible based on patient's age to complete this topic
[2025-07-12 07:09] LABS: Testosterone, Total, LC/MS 23 ng/dL (.)
== END 2025-06-30 08:30 | disposition home or self-care (01) ==
LOC: ANHLAB 08:36
PROVIDERS: PCP Family Medicine; Visit Provider Advanced Practice Midwife
DX: N91.2 Amenorrhea, unspecified (principal)
CPT/HCPCS: 82627; 83498; 83525; 84146; 84403